=== PATIENT | male | born 1990 | race Caucasian/White ===

== ENCOUNTER 2023-10-24 14:38 | Emergency (ER) | payer OTHER, SELFPAY ==
[2023-10-24 14:39] VITALS: BP 150/96
--- NOTE | 2023-10-24 17:20 | ED.GENMED ---
History of Present Illness
General
Chief Complaint: Musculo-Skeletal Complaint
Source: patient
Exam Limitations: none
Time Seen by Provider: 10/24/23 15:03
Nursing documentation reviewed up to this point in time: agreed with
Travel History
Have you had any contact with someone who has COVID-19?: No
Do you have any symptoms of coronavirus? Fever > 100 degrees, chills, cough, shortness of breath, sore throat, loss of taste or smell, muscle aches, or headache?: No
History of Present Illness
History of Present Illness:
33-year-old male presenting to the emergency department today with concerns of right-sided ankle discomfort after twisting his ankle 2 days ago. Has been able to walk but has been limping. Denies any numbness weakness or additional injuries.
Review of Systems
Review of Systems
Allergies reviewed?: Yes
All Other Systems: ROS reviewed and negative except as documented in HPI and ROS
Phy Exam
Physical Exam
Physical Exam:
GENERAL: Alert , in no apparent distress
EYE: pupils equal and reactive
NECK: Supple, no significant adenopathy.
ENT: o/p clr, mmm.
CARDIAC: Regular rate and rhythm .
LUNGS: Clear breath sounds bilaterally, no acute respiratory distress, no wheezes/rales/rhonchi
ABDOMEN: Soft, without focal tenderness, no r/g, no cvat
NEUROLOGICAL: Alert and oriented, no focal neuro deficits
SKIN: Warm and dry, skin intact.
MUSCULOSKELETAL: Swelling to the lateral malleolus of the right foot tenderness mainly anteriorly to the lateral malleolus otherwise no tenderness throughout the foot to the base of the fifth metatarsal to the toes or medial malleolus. No
tenderness throughout the lam or knee., well perfused.
PSYCH: Normal and appropriate interaction.
Course
Orders/Labs/Results
Orders:
Orders
10/24/23 14:42
Ankle, Right 3 view CR [CR Ankle - Right Min 3 Views *] Urgent
Comment:
Reason For Exam: injury
Vital Signs
Initial and Last Documented VS:
Initial Vital Signs
Temp Pulse Resp BP Pulse Ox
98.3 F 85 16 150/96 98
10/24/23 14:39 10/24/23 14:39 10/24/23 14:39 10/24/23 14:39 10/24/23 14:39
Last Documented Vital Signs
Temp Pulse Resp BP Pulse Ox
98.3 F 72 16 145/74 98
10/24/23 14:39 10/24/23 17:26 10/24/23 14:39 10/24/23 17:26 10/24/23 14:39
MDM/Problems Addressed
MDM/Problems Addressed:
33-year-old male presenting to the emergency department today with concerns of ankle discomfort after twisting his ankle playing basketball 2 days ago. Here he has tenderness anteriorly to the lateral malleolus. No additional tenderness throughout
the foot heel or lam. X-ray without signs of fracture. Benign bone lesion was described to the patient as well that he was aware of. He was advised to rest ice compress and elevate and otherwise will follow-up with orthopedics. Return
precautions given.
*Critical Care Note
Total Time (30-74mins, 75-104mins- exclusive of procedures): Not Applicable
ED Attending Note
-
Portions of this chart may have been created with voice recognition software.� Occasional wrong word or��sound alike� substitutions may have occurred due to the inherent limitations of voice recognition software.
Discharge Plan
Departure
Patient Disposition: Home (Routine Discharge)
Date of Disposition: 10/24/23
Time of Disposition: 17:20
Patient with high blood pressure during this ER visit?: No
Condition: Good
Covid-19: Not Applicable
Discharge Problem:
Ankle sprain
Instructions: Ankle Sprain (DC)
Referrals:
Irvin Duggan MD [Family Provider] -
Will Bhatt DPM [Active] - Follow up in 5-7 days
Activity Restrictions/Additional Instructions:
You came to the emergency department today with concerns of ankle discomfort. You had x-ray without signs of fracture. Please help closely with orthopedics as needed. In the meantime please rest ice compress and elevate over the next few days as
symptoms will hopefully improve. Return to the emergency department for any worsening, new or concerning symptoms.
Interventions
Interventions:
*Risk Screen - Suicide Last Done: 10/24/23 14:39
*General Assessment Last Done: 10/24/23 14:39
*Neglect/Abuse Screening Last Done: 10/24/23 14:39
*Nursing Disposition Last Done: 10/24/23 17:26
ED-Musculoskeletal Assessment Last Done: 10/24/23 15:18
Discharge Date and Time
Discharge Date/Time: 10/24/23 17:27
[2023-10-24 17:25] VITALS: BP 145/74
[2023-10-24 17:26] VITALS: BP 145/74
== END 2023-10-24 17:27 | disposition home or self-care (01) ==
LOC: EMR 14:38
PROVIDERS: EMERGENCY PHYSICIAN Emergency Medicine; FAMILY PHYSICIAN Family Medicine
DX: S93.401A Sprain of unspecified ligament of right ankle, initial encounter (principal); X50.1XXA Overexertion from prolonged static or awkward postures, initial encounter
CPT/HCPCS: 99283; 73610

== ENCOUNTER → 2025-06-13 06:44 | Outpatient (REF) | payer OTHER, SELFPAY | LOC: RAD 06:44 | PROVIDERS: ATTENDING PHYSICIAN Physician Assistant; FAMILY PHYSICIAN Family Medicine | DX: E66.09 Other obesity due to excess calories (principal); Z68.34 Body mass index [BMI] 34.0-34.9, adult; E66.811 Obesity, class 1 | CPT/HCPCS: 76700 ==